=== PATIENT | male | born 1950 | race Caucasian/White ===

== ENCOUNTER 2019-11-14 01:45 | Outpatient (CLI) | payer OTHER | END 2019-11-14 19:50 | disposition short-term general hospital (02) | LOC: EEVIPCON 01:45 → MCT 01:45 | DX: R16.0 Hepatomegaly, not elsewhere classified (principal); N28.1 Cyst of kidney, acquired; D73.4 Cyst of spleen; K57.90 Diverticulosis of intestine, part unspecified, without perforation or abscess without bleeding; Z85.038 Personal history of other malignant neoplasm of large intestine ==